=== PATIENT | female | born 1985 | race Caucasian/White ===

== ENCOUNTER 2017-03-23 06:00 | Inpatient (IN) | payer OTHER ==
[~2017-03-23] VITALS: Ht 162.6 cm; Wt 74.9 kg
[~2017-03-23 06:00] MED LIST: FERR240T9; PNV1TABL12
[2017-03-23 06:38] VITALS: Ht 162.6 cm; Wt 74.9 kg
[2017-03-23 06:39] VITALS: BP 125/77; PULSE 81; RESP 16
[2017-03-23] MEDS ORDERED: LACTATED RINGER'S 1,000 ML IV SCH (06:43)
--- NOTE | 2017-03-23 06:49 | TRIAGE ---
OB Triage Datetime Report Generated by CPN: 03/23/2017 06:49 Datetime: 03/23/2017 06:30 Vaginal Exam Dilatation (cms): 3.5 Effacement (%): 60 Station: -2 Datetime: 03/23/2017 06:25 Stage of : OB Triage Assessment Type: Triage Maternal Assessment Level of Consciousness: Fully Conscious DTR's/Clonus: DTRs 2+; No Clonus Headache: Denies Blurred Vision: No Respiratory Effort: Unlabored; Regular Rhythm; Equal Expansion Breath Sounds, Left: Clear and Equal Breath Sounds, Right: Clear and Equal Nausea/Vomiting: Denies RUQ Epigastric Pain: Denies Lower Extremities Edema: None Degree: None Upper Extremities Edema: None Degree: None Facial Edema: None Temperature Route: Oral Fall Risk Assessment History of Falling: (0) No Secondary Diagnosis: (0) No Ambulatory Aid: (0) Bedrest/Nurse Assist IV Therapy: (0) No Gait: (0) Normal/Bedrest/Immobile Mental Status: (0) Oriented to Own Ability Fall Score: 0 Fall Risk Score Definition: No Risk: No action required Pain Assessment Pain Scale: 8 Pain Presence: Intermittent Pain Type: Contraction Pain Location: Abdomen Pain Goal: 0 Pain Relief Measures: Comfort Measures Datetime: 03/23/2017 06:24 EGA: 40.0 Datetime: 03/23/2017 06:23 Time of Arrival: 03/23/2017 06:15 Arrived By: Ambulatory Arrived From: Home Chief Complaint: CONTRACTIONS SINCE 2099 Movement: Present Contractions: Irregular Time Contractions Began: 03/22/2017 21:00 Rupture of Membranes: Denies Vaginal Bleeding: None Vaginal Discharge: Denies Recent Sexual Intercouse: Denies Abdominal Trauma: Not Applicable Patient Complaints: Contractions Time Provider Notified: 03/23/2017 06:42 Provider Notified: HADADIAN Initial Plan: CEFM, VE Datetime: 03/23/2017 06:22 Heart Rate Comments: MONITORS APPLIED
[2017-03-23] MEDS ORDERED: LACTATED RINGER'S 1,000 ML IV PRN (06:50)
[2017-03-23] MEDS ORDERED: HYDROCODONE/APAP (5/325) TAB PO PRN ×3 (07:00→21:30)
[2017-03-23] MEDS ORDERED: OXYTOCIN 30 UNITS/LR 500 ML IV SCH ×3 (07:00→13:00)
[2017-03-23] MEDS ORDERED: LIDOCAINE 1% (MPF) 30 ML INJ INJ PRN (07:00)
[2017-03-23] MEDS ORDERED: MISOPROSTOL 200 MCG TAB PR PRN (07:00)
[2017-03-23] MEDS ORDERED: METHYLERGONOVINE 0.2 MG INJ IM PRN (07:00)
[2017-03-23] MEDS ORDERED: AMPICILLIN 2 GM/NS (PMX) 100 ML IV ONE (07:00)
[2017-03-23] MEDS ORDERED: CARBOPROST 250 MCG INJ IM PRN (07:00)
[2017-03-23] MEDS ORDERED: OXYTOCIN 30 UNITS/LR 500 ML IV PRN (07:00)
[2017-03-23] MEDS ORDERED: IBUPROFEN 600 MG TAB PO PRN (07:00)
[2017-03-23] MEDS ORDERED: BUTORPHANOL 2 MG INJ IV PRN (07:00)
[2017-03-23] MEDS ORDERED: DEXTROSE 5%-LR 1,000 ML IV SCH (08:00)
[2017-03-23 08:22] LABS: BASOPHILS % 0.4 % (0.0-2.0); EOSINOPHILS # 0.1 10^3/ul (0.0-0.5); EOSINOPHILS % 0.9 % (0.0-7.0); HEMATOCRIT 31.6 % (37.0-47.0); HEMOGLOBIN 9.8 g/dl (12.0-16.0); LYMPHOCYTES # 1.6 10^3/ul (0.8-2.9); LYMPHOCYTES % 16.3 % (15.0-51.0); MEAN CORPUSCULAR HEMOGLOBIN 22.3 pg (29.0-33.0); MEAN CORPUSCULAR VOLUME 71.8 fl (82.0-101.0); MEAN PLATELET VOLUME 10.5 fl (7.4-10.4); MONOCYTE # 0.7 10^3/ul (0.3-0.9); MONOCYTES % 6.8 % (0.0-11.0); NEUTROPHIL # 7.6 10^3/ul (1.6-7.5); NEUTROPHILS % 74.9 % (39.0-77.0); NUCLEATED RED BLOOD CELLS% 0.2 /100WBC (0.0-0.0); PLATELET COUNT 200 10^3/UL (140-415); RED CELL DISTRIBUTION WIDTH 19.7 % (11.5-14.5); WHITE BLOOD COUNT 10.1 10^3/ul (4.8-10.8)
[2017-03-23 08:40] LABS: INR 1.04; PARTIAL THROMBOPLASTIN TIME 25.4 Sec (25.0-35.0); PROTIME 13.6 Sec (12.2-14.2); PT RATIO 1.1
[2017-03-23] MEDS ORDERED: FENTAnyl 2MCG/ML-ROPIV 0.2% 100 ML ONE (09:44)
[2017-03-23] MEDS ORDERED: AMPICILLIN 1 GM/NS (PMX) 50 ML IV SCH (11:00)
[2017-03-23] MEDS: LACTATED RINGER'S 1,000 ML IV SCH ×2 (12:26→17:12)
[2017-03-23] MEDS ORDERED: HYDROmorphONE 0.5 MG/0.5 ML SYG IV PRN ×2 (13:30)
[2017-03-23] MEDS ORDERED: ONDANSETRON 4 MG INJ IV PRN ×2 (13:30→21:30)
[2017-03-23] MEDS ORDERED: DIPHENHYDRAMINE 50 MG INJ IV PRN (13:30)
[2017-03-23] MEDS ORDERED: KETOROLAC 30 MG INJ IV PRN (13:30)
[2017-03-23] MEDS ORDERED: FENTAnyl 2MCG/ML-ROPIV 0.2% 100 ML BAG EPI SCH (13:30)
[2017-03-23] MEDS ORDERED: ZOLPIDEM 5 MG TAB PO PRN (13:30)
[2017-03-23] MEDS ORDERED: NALOXONE (0.4 MG/ML) INJ IV PRN (13:30)
--- NOTE | 2017-03-23 18:46 | HP ---
Date/Time of Note Date/Time of Note DATE: 03/23/17 TIME: 18:39 OB - History Hx of Present Free Text/Dictation 32 years old female SAB 1 EDC March 23, 2017 admitted to [facility] in active labor pelvic examination and admission cervix 6-7 cm dilated 80% effaced vertex at -2 station with intact membrane heart rate category 1 patient transferred from triage to labor and delivery room anticipating vaginal delivery Chief Complaint: Labor contraction Estimated Due Date: Mar 23, 2017 : 4 Para: 2 Spontaneous : 1 Obstetrical Complications: None Medical Complications: None Past Family/Social History * Past Medical, Surgical, Family and Obstetric Histories reviewed from chart. RPR/VDRL: Negative GBS Status: Negative HBsAG: Negative OB Admission Exam Vital Signs Vital Signs Vital Signs Date Time Temp Pulse Resp B/P Pulse Ox O2 Delivery O2 Flow Rate FiO2 03/23/17 06:39 98.2 81 16 125/77 Room Air Physical Exam HEENT: WNL Heart: Rhythm Normal Lungs: Clear, Equal Abdomen: WNL Extremities: Normal Reflexes: Normal Cervical Dilatation: 6cm Effacement: 100% Station: -1 Membranes: Intact Heart Rate: 130's Accelerations: Accelerations Present Decelerations: No Decelerations Varibility: Moderate Contractions on Admission: < 5 Minutes Apart Intensity: Moderate Last 72 hours Lab Results CBC & BMP 03/23/17 08:00 OB Assessment/Plan Reason for admission: active labor Other plan: 32 years old G 4 P2 Ab1 admitted to [facility] at 40 weeks gestation in active labor pelvic examination, cervix 6 cm dilated 90-100% effaced vertex at -2 station patient transferred from triage to labor and delivery room anticipating vaginal delivery JORGE LANCE MD Mar 23, 2017 18:46
--- NOTE | 2017-03-23 18:49 | LDN ---
Date/Time of Note Date/Time of Note DATE: 03/23/17 TIME: 18:46 Delivery Summary Normal spontaneous vaginal delivery of a baby girl from OA position shoulders delivered without any difficulty rest of the baby's body followed cord clamped after stopped pulsation placenta spontaneous expulsion inspected complete, pelvic peritoneal inspection no laceration estimated blood loss 200-250 cc Weeks of Gestation 40 weeks Placenta Delivered: Spontaneously Episiotomy: No Perineal laceration: 1 Anesthesia type: Epidural Estimated blood loss: 200 Sponge & Needle done & correct: Yes All needle counts correct: Yes Any foreign bodies felt in the: No Problems: Delivery Information Sex Sex: female Apgars 1 Minute: 8 5 Minute: 9 Suctioning Nose & mouth suctioned at marni: Yes Delee suction performed: No Umbilical Cord Umbilical cord with: 3 Vessels Cord presentations: no nuchal cord Cord Blood was obtained: Yes JORGE LANCE MD Mar 23, 2017 18:49
[2017-03-23 20:45] VITALS: BP 115/63; PULSE 85; RESP 22
[2017-03-23] MEDS: OXYTOCIN 30 UNITS/LR 500 ML IV SCH ×2 (21:20→23:54)
[2017-03-23 21:30] VITALS: BP 122/63; PULSE 72; RESP 18
[2017-03-23] MEDS ORDERED: ACETAMINOPHEN 325 MG TAB PO PRN (21:30)
[2017-03-23] MEDS ORDERED: LANOLIN 7 GM TUBE TOP PRN (21:30)
[2017-03-23] MEDS ORDERED: DIBUCAINE 1% 30 GM OINT PR PRN (21:30)
[2017-03-23] MEDS ORDERED: WITCH HAZEL/GLYCERIN PAD PR PRN (21:30)
[2017-03-23] MEDS ORDERED: BENZOCAINE 20% 56 ML SPRAY TOP PRN (21:30)
[2017-03-23] MEDS ORDERED: OXYCODONE/ASPIRIN (4.88/325) TAB PO PRN ×2 (21:30)
[2017-03-23] MEDS: IBUPROFEN 600 MG TAB PO SCH (23:54)
[2017-03-24 04:00] VITALS: BP_SYST 112; BP_SYST 99; BP_DIAS 52; BP_DIAS 66; PULSE 56; PULSE 80; RESP 18
[2017-03-24] MEDS: IBUPROFEN 600 MG TAB PO SCH ×4 (06:04→23:40)
[2017-03-24 08:20] VITALS: BP 121/58; PULSE 118; RESP 20
--- NOTE | 2017-03-24 09:32 | QN ---
Documentation Comment day 1 Afebrile Vital signs stable Abdomen soft, uterus firm lochia normal,, extremities normal, a.m. discharge discussed JORGE LANCE MD Mar 24, 2017 09:32
[2017-03-24] MEDS: SENNA/DOCUSATE NA (8.6MG/50MG) TAB PO SCH ×2 (10:10→21:13)
[2017-03-24 11:57] LABS: BASOPHILS % 0.3 % (0.0-2.0); EOSINOPHILS # 0.1 10^3/ul (0.0-0.5); HEMATOCRIT 30.1 % (37.0-47.0); HEMOGLOBIN 9.3 g/dl (12.0-16.0); LYMPHOCYTES # 1.7 10^3/ul (0.8-2.9); LYMPHOCYTES % 14.5 % (15.0-51.0); MEAN CORPUSCULAR HEMOGLOBIN 22.5 pg (29.0-33.0); MEAN CORPUSCULAR HGB CONC 30.9 g/dl (32.0-37.0); MEAN CORPUSCULAR VOLUME 72.9 fl (82.0-101.0); MEAN PLATELET VOLUME 11.1 fl (7.4-10.4); MONOCYTES % 7.9 % (0.0-11.0); NEUTROPHIL # 9.1 10^3/ul (1.6-7.5); NEUTROPHILS % 75.5 % (39.0-77.0); NUCLEATED RED BLOOD CELLS% 0.2 /100WBC (0.0-0.0); PLATELET COUNT 193 10^3/UL (140-415); RED BLOOD COUNT 4.13 10^6/ul (4.20-5.40); RED CELL DISTRIBUTION WIDTH 19.9 % (11.5-14.5)
[2017-03-24 12:00] VITALS: BP 109/69; PULSE 94; RESP 19
[2017-03-24 16:45] VITALS: BP 114/63; PULSE 83; RESP 18
[2017-03-24 20:00] VITALS: BP 112/64; PULSE 90; RESP 18
[2017-03-25 04:00] VITALS: BP 116/76; PULSE 76; RESP 18
[2017-03-25] MEDS: IBUPROFEN 600 MG TAB PO SCH ×2 (05:43→11:48)
[2017-03-25 09:00] VITALS: BP 134/72; PULSE 93; RESP 17
[2017-03-25] MEDS ORDERED: MEASLES,MUMPS,RUBELLA VACCINE INJ SC* ONE (09:00)
[2017-03-25] MEDS: SENNA/DOCUSATE NA (8.6MG/50MG) TAB PO SCH (09:40)
--- NOTE | 2017-03-25 14:12 | PD.PPDC ---
GAUGE [facility]KER Discharge Instruction Condition Patient Condition: Good Diet Diet: Resume Regular Diet Activity/Restrictions Activity: Normal Activity May Shower Follow-up Follow-up with Physician: 2, Week/Weeks Provider Information: instruction given recommended to make appointment to be seen in the office in 2 weeks Return to clinic for [facility] LITEM Instructions: Fever greater than 101 Chills Worsening abdominal pain Excessive Vaginal Bleeding More than 2 pads per hour Unable to tolerate diet OB Instructions: Breast Tenderness Depression Blurried Vision Headache JORGE LANCE MD Mar 25, 2017 14:12
--- NOTE | 2017-03-25 14:14 | DS ---
Date/Time of Note Date/Time of Note DATE: 03/25/17 TIME: 14:13 Discharge Summary Admission/Discharge Info Admit Date/Time Mar 23, 2017 at 06:50 Discharge Date/Time March 25, 2017 at 1400 Discharge Diagnosis Day 2 post normal vaginal delivery Patient Condition: Good Procedures Normal vaginal delivery Hx of Present Illness Term Hospital Course Satisfactory recovery uneventful Home Meds Reported Medications Ferrous Gluconate (Iron) 1 Tab Tablet 09/04/10 Pnv Cmb#21/Iron/Folic Acid ( Complete Caplet) 1 Tab Tablet 09/04/10 Follow-up Plan instruction given recommended to make appointment to be seen at the clinic in 2 weeks Primary Care Provider Not On Staff Doctor Time spent on discharge: < 30 minutes JORGE LANCE MD Mar 25, 2017 14:14
== END 2017-03-25 16:10 | disposition home or self-care (01) | DRG 775 ==
LOC: OBT 06:00 → L-D 06:00 → OBT 07:14 → L-D 07:29 → PP1 21:26
PROVIDERS: ADMIT Obstetrics & Gynecology; ATTEND Obstetrics & Gynecology
PROC: 10E0XZZ Delivery of Products of Conception, External Approach (ICD-10-PCS; principal; 2017-03-23)
DX: O80 Encounter for full-term uncomplicated delivery (principal); Z37.0 Single live birth; Z3A.40 40 weeks gestation of pregnancy
CPT/HCPCS: 62319; 85025; 85610; 85730; 86592; 86900; 86901; 87340; G0463; J2590; J3010; J7120; J7121

== ENCOUNTER 2017-09-21 10:41 | Day surgery (SDC) | END 2017-09-21 17:52 | disposition home or self-care (01) ==